=== PATIENT | female | born 1975 | race Caucasian/White ===

== ENCOUNTER 2020-08-23 14:22 | Emergency (ER) | payer BC, SELFPAY ==
[2020-08-23 14:25] VITALS: BP 123/80; PULSE 101; RESP 18; TEMP 36.2; O2SAT 97; BMI 22.6
--- NOTE | 2020-08-23 14:46 | EKG12_ITS ---
Test Reason : CP Blood Pressure : / mmHG Vent. Rate : 089 BPM Atrial Rate : 089 BPM P-R Int : 132 ms QRS Dur : 082 ms QT Int : 356 ms P-R-T Axes : 068 021 019 degrees QTc Int : 433 ms Normal sinus rhythm Nonspecific ST and T wave abnormality Abnormal ECG Confirmed by MANSOOR FRIEND, SOFIE ([id number]), image editor CHANELL LEARY ([id number]) on 08/27/2020 9:32:57 AM Referred By: JOSE Confirmed By:SOFIE MAX MD
--- NOTE | 2020-08-23 14:47 | ED.DCSUM_ITS ---
History of Present Illness Informant: Patient Onset: Days Narrative: 45-year-old female with past medical history of spontaneous pneumothorax, bilateral pleurodesis over 20 years ago, currently Covid positive presents with complaints of chest pain and worsening shortness of breath. Over the last week she has had fevers, chills, loss of taste and smell, dry cough, shortness of breath, and right-sided chest pain. She tested positive for Covid several days ago. She states she has just been lying in bed and has felt short of breath when talking. Today she went down the stairs and had dyspnea on exertion which prompted her to come to the ED. She has pain across her right lower chest and today also developed pain in the left lower chest. Pain is with coughing or deep breathing but is nonexertional. Denies radiation, nausea, vomiting, or diaphoresis. <Allyson Pimentel - Last Filed: 08/23/20 17:46> <Pawan Gaston - Last Filed: 08/23/20 18:11> Chief Complaint: Cough Past Medical History Past Medical History: - - History of pneumothorax, bilateral pleurodesis Smoking Status: Never smoker <Allyson Pimentel - Last Filed: 08/23/20 17:46> <Pawan Gaston - Last Filed: 08/23/20 18:11> - Allergies and Home Meds Allergies/Adverse Reactions: Allergies acetaminophen [From Percocet] Adverse Reaction (Verified 08/23/20 15:07) Itching codeine Adverse Reaction (Verified 08/23/20 15:07) Vomiting oxycodone HCl [From Percocet] Adverse Reaction (Verified 08/23/20 15:07) Itching Primary Care Physician: Sidney Berger MD [NON-STAFF] - Review of Systems General: Reports: Chills, Fever, Malaise Eyes: Denies: Visual changes - bilaterally, Diplopia ENT: Denies: Rhinorrhea, Sore throat Cardiovascular: Reports: Chest pain. Denies: Palpitations Respiratory: Reports: Dyspnea, Cough, Dyspnea on exertion. Denies: Orthopnea, Paroxysmal nocturnal dyspnea Gastrointestinal: Denies: Abdominal pain, Nausea, Vomiting, Diarrhea, Melena, Hematochezia Genitourinary: Denies: Dysuria, Hematuria, Frequency Musculoskeletal: Reports: Myalgias. Denies: Neck pain, Back pain Skin: Denies: Rash, Wounds <Allyson Pimentel - Last Filed: 08/23/20 17:46> Physical Exam Vital Signs/Narrative: Vital Signs Temp Pulse Resp BP Pulse Ox 08/23/20 14:25 97.1 F L 101 H 18 123/80 H 97 General: Well nourished, Well developed, No Acute Distress Head: Normocephalic, Atraumatic Eyes: Perrl, EOMI ENT: Moist mucous membranes, No rhinorrhea Neck: Supple, Nontender Cardiovascular: Regular rate, Regular rhythm, No murmurs Respiratory: No distress, - - Rales/rhonchi in right lower lung base dominguez clear to auscultation. Producible tenderness to palpation over all anterior lower ribs Abdomen: Soft, Nontender, Nondistended, Normal bowel sounds Back: Nontender, Normal Inspection Extremities: Nontender, No edema Skin: Normal color, No rash Neurological: Alert, Oriented x3, Cranial nerves II-XII grossly intact, Normal Strength, Normal Sensation Psychological: Normal affect, Normal Mood <Allyson Pimentel - Last Filed: 08/23/20 17:46> Vital Signs/Narrative: Vital Signs Temp Pulse Resp BP Pulse Ox 08/23/20 16:41 98.3 F 76 20 H 107/71 98 08/23/20 14:25 97.1 F L 101 H 18 123/80 H 97 <Pawan Gaston - Last Filed: 08/23/20 18:11> Diagnostic/Tx/Re-eval Clinical Impression(s) from Imaging Studies Chest X-Ray 08/23/20 15:17 IMPRESSION: Bibasilar infiltrates suggesting pneumonia, including viral causes. Electronically Signed: Nolberto Richardson MD ([place]) at 15:27 EST , Service support , Chest CTA 08/23/20 16:34 IMPRESSION: 1. Bilateral lower lobe segmental pulmonary embolism. No CT evidence of right heart strain. 2. Multilobar groundglass and interlobular opacities typical of COVID associated pneumonia. Electronically Signed: Nolberto Richardson MD (Brooks) at 17:10 EST , Service support , Laboratory Data 08/23/20 08/23/20 08/23/20 15:05 15:05 15:05 WBC 3.8 L RBC 4.42 Hgb 13.8 Hct 40.8 MCV 92.3 MCH 31.2 MCHC 33.8 RDW Std Deviation 40.2 RDW Coeff of Linus 11.8 Plt Count 182 MPV 9.8 Immature Gran % (Auto) 0.500 Neut % (Auto) 86.1 H Lymph % (Auto) 10.7 L [place] % (Auto) 2.4 Eos % (Auto) 0.0 Baso % (Auto) 0.3 Absolute Neuts (auto) 3.3 Absolute Lymphs (auto) 0.41 L Nucleated RBC % 0 Differential Comment SCANNED D-Dimer Quant (PE/DVT) 1.87 H* Sodium 137 Potassium 3.6 Chloride 108 H Carbon Dioxide 21.0 Anion Gap 8 BUN 12 Creatinine 1.06 H Estim Creat Clear Calc 62.74 Est GFR (MDRD) Af Amer 72 Est GFR (MDRD) Non-Af 60 BUN/Creatinine Ratio 11.3 Glucose 138 H Calcium 8.8 - Rhythm Strip Rhythm Strip: Sinus Rhythm Rate: 89 Ectopy: None - Medical Decision Making 45-year-old female who is Covid positive presents with cough, chest pain and shortness of breath. She appears well nontoxic. Vital signs show tachycardia 101, otherwise normal. 97% on room air. Labs show mild leukopenia. D-dimer elevated. CTA shows bilateral lower lobe PEs and multilobar groundglass opacities typical of COVID pneumonia. Ambulatory pulse ox is 97% with HR of 110. She states she feels fine with exertion. She is comfortable with going home on anticoagulation. She was given Lovenox here and a prescription for Eliquis and Decadron x5 days. Follow-up with PCP in 1 to 2 weeks. She was agreeable with this plan and discharged home in stable condition. <Allyson Pimentel - Last Filed: 08/23/20 17:46> - Medical Decision Making Patient has known Covid positive. She does have a history of prior pneumothorax. She has significant pleuritic pain. Metabolic work-up was pursued and is relatively unremarkable. Patient was given Decadron. However, her D-dimer was elevated and she underwent CTA. This does show small segmental PEs in the lower lobes. The patient was ambulated without hypoxia. She is feeling improved. She was covered with Lovenox. The patient wants to attempt outpatient therapy. I do feel that this is reasonable given her lack of significant comorbidities and small PEs. She was counseled on concerning symptoms and reasons to return. She will be discharged. <Pawan Gaston - Last Filed: 08/23/20 18:11> ED Disposition <Allyson Pimentel - Last Filed: 08/23/20 17:46> <Pawan Gaston - Last Filed: 08/23/20 18:11> - Plan for ED Patient: Disposition: Home or Assisted Living Diagnosis: Bilateral pulmonary embolism, Pneumonia due to COVID-19 virus Instructions: Pulmonary Embolism Prescriptions: Dexamethasone [Decadron] 6 mg PO DAILY 5 Days #5 tab Transmission Status: Received by [id number] Apixaban [Eliquis] 5 mg PO BID #60 tab Transmission Status: Received by [id number] Referrals: Sidney Berger MD [NON-STAFF] -
--- NOTE | 2020-08-23 15:17 | RAD_ITS ---
STUDY: X-RAY CHEST REASON FOR EXAM: Female, 45 years old. covid positive, pnuemonia, increased SOB TECHNIQUE: AP COMPARISON: None. FINDINGS: EKG leads project over the chest. There are patchy groundglass and interstitial opacities in the left more than right lung base. There is pleural fibrotic thickening of the pulmonary lung apices. Normal size heart. Normal mediastinum and narendra. Normal visualized pulmonary arteries. Normal visualized aortic arch and descending thoracic aorta. Normal visualized thoracic spine. Normal visualized ribs, clavicles, and shoulders. There is no demonstrated abnormality of the visualized soft tissue structures of the upper abdomen. RAD/Chest 1 View (Portable) IMPRESSION: Bibasilar infiltrates suggesting pneumonia, including viral causes. Electronically Signed: Nolberto Richardson MD (Bro[place]) at 15:27 EST , Service support ,
[2020-08-23 15:37] LABS: Anion Gap 8 (5-15); BUN 12 mg/dL (7-18); BUN/Creat Ratio 11.3 RATIO (10-20); Calcium,Total 8.8 mg/dL (8.5-10.1); Chloride 108 mmol/L (98-107); Creatinine, Serum 1.06 mg/dL (0.55-1.02); EST Glomerular Filtration Rate 60 mL/min (>60); Est Glom Filt Rate - Afr Amer 72 mL/min (>60); Estimated Creatinine Clearance 62.74 ml/min; Glucose 138 mg/dL (74-106); Potassium 3.6 mmol/L (3.5-5.1); Sodium Level 137 mmol/L (136-145)
[2020-08-23 15:46] LABS: Absolute Lymphocyte Count 0.41 X10^3/uL (0.83-4.51); Absolute Neutrophil Count 3.3 X10^3/uL (2.0-7.7); Basophil# 0.01 X10^3/uL; Basophil% 0.3 % (0-1); Hematocrit 40.8 % (37-47); Hemoglobin 13.8 g/dL (12.0-15.0); Lymphocyte # 0.41 X10^3/ul (4.0); Lymphocyte % 10.7 % (19-41); Mean Corp Hgb Conc 33.8 g/dL (32-36); Mean Corpuscular Hgb 31.2 pg (27.0-32.0); Mean Corpuscular Volume 92.3 fL (81-99); Mean Platelet Vol. 9.8 fl (6.2-12.0); Monocyte# 0.09 X10^3/uL; Monocyte% 2.4 % (0-10); NRBC Flagged by Analyzer 0 % (0-5); Neutrophil # 3.29 X10^3/uL (2.7-7.7); Neutrophil % 86.1 % (47-70); POSITIVE DIFFERENTIAL YES; Platelet Count 182 K/mm3 (150-450); RBC Distribution Width CV 11.8 % (11.6-14.6); RBC Distribution Width SD 40.2 fl (35.1-43.9); Red Blood Count 4.42 M/mm3 (4.2-5.4); White Blood Count 3.8 K/mm3 (4.4-11.0)
[2020-08-23 16:03] LABS: Differential Indicated SCAN CRITERIA MET
[2020-08-23] MEDS: dexAMETHasone 10 MG/ML Vial 6 MG IV (16:13)
[2020-08-23 16:34] LABS: D-Dimer Quantitative (DVT/PE) 1.87 FEU/ug/m (0.27-0.49)
--- NOTE | 2020-08-23 16:34 | CT_ITS ---
STUDY: CTA CHEST REASON FOR EXAM: Female, 45 years old. COVID, SOB, COUGH, ELEV. D-DIMER, BILAT CP, H/O SPONTANEOUS PNEUMO BILAT RADIATION DOSAGE (If Supplied By Facility): CTDIvol = ( 5.655 ) mGy, DLP = ( 178.85 ) mGycm TECHNIQUE: The examination was performed with the intravenous administration of IV 100mL Isovue-370. Post-processing of the angiographic images was performed, with multiplanar reformation and 3D reconstruction. Individualized dose optimization techniques were used for this CT. COMPARISON: None. FINDINGS: Bilateral breast implants. Normal enhancement of the main pulmonary artery and right and left pulmonary arteries. There are filling defects involving the bilateral lower lobe segmental branches (image 196 series 602 on the left; image 106 series 602 on the right). No evidence of right heart strain. Normal thoracic aorta and visualized great vessels. There is no demonstrated aortic dissection. Normal heart and pericardium. Normal mediastinum. Normal hilar regions. There are multilobar peripheral rounded groundglass opacities with intralobular septal thickening predominantly in the bilateral lower lobes. Normal chest wall structures. Normal osseous structures. Normal visualized upper abdomen. CT/CTA Chest W/WO Contrast IMPRESSION: 1. Bilateral lower lobe segmental pulmonary embolism. No CT evidence of right heart strain. 2. Multilobar groundglass and interlobular opacities typical of COVID associated pneumonia. Electronically Signed: Nolberto Richardson MD (Brooks) at 17:10 EST , Service support ,
[2020-08-23 16:41] VITALS: BP 107/71; PULSE 76; RESP 20; TEMP 36.8; O2SAT 98
[2020-08-23 16:45] LABS: Differential Comment SCANNED
[2020-08-23] MEDS: Enoxaparin 60 MG/0.6 ML Syringe SC (17:41)
[2020-08-23 17:52] VITALS: O2SAT 98
[2020-08-23 18:12] VITALS: BP 112/75; PULSE 85; RESP 22; TEMP 36.9; O2SAT 96
== END 2020-08-23 18:13 | disposition home or self-care (01) ==
PROVIDERS: Emergency Provider Physician Assistant; PCP Family Medicine
DX: I26.99 Other pulmonary embolism without acute cor pulmonale (principal); U07.1 COVID-19; J12.89 Other viral pneumonia
CPT/HCPCS: 71045; 71275; 80048; 85025; 85379; 93005; 96372; 96374; 99284; J7030; Q9967; A4216

== ENCOUNTER 2020-11-21 09:22 | Day surgery (SDC) | payer BC, SELFPAY ==
--- NOTE | 2020-11-14 13:52 | HP.PCM_ITS ---
History and Physical Date of Admission: 11/21/20 HPI: The patient is a 45 year old female presenting for pre-operative visit. She is scheduled for?hysteroscopy with endometrial ablation, for?menorrhagia. ??Procedure discussed along with risks, benefits and complications. ?Other alternatives discussed for management. Consent form signed??Yes.? PAST MEDICAL HISTORY PAST MEDICAL HISTORY Diagnosis Date ? Bilateral pulmonary embolism (HCC) ? ? d/t covid pneumonia ? Kidney stones ? ? Migraine, menstrual ? ? Spontaneous pneumothorax ? ? ? PAST SURGICAL HISTORY PAST SURGICAL HISTORY Procedure Laterality Date ? BREAST AUGMENTATION W/PROSTHETIC IMPLANT Bilateral ? ? under the muscle ? PAST SURGICAL HISTORY OF Bilateral ? ? bilateral lungs d/t pneumothorax ? PAST SURGICAL HISTORY OF Bilateral ? ? d/t renal calculi ? PAST SURGICAL HISTORY OF Right ? ? right foot fx ? ? CURRENT MEDICATIONS Current Outpatient Medications Medication Sig Dispense Refill ? ELIQUIS 5 mg tab(s) ? ProAir RespiClick 90 mcg/actuation breath activated Inhale 2 Puffs as instructed every 4 hours as needed. ? ? ? OXYGEN, HOME THERAPY, by Nasal Cannula route as directed. ? ? ? traZODone (DESYREL) 50 mg tablet Take 1 tablet by mouth daily at bedtime. 90 tablet 3 ? FLUoxetine HCl (PROZAC) 40 mg capsule Take 40 mg by mouth once daily. ? ? ? topiramate (TOPAMAX) 50 mg tablet Take 50 mg by mouth once daily. ? ? ? Multivitamin capsule Take 1 capsule by mouth once daily. ? ? ? ascorbic acid (VITAMIN C ORAL) Take by mouth. ? ? ? cyanocobalamin, vitamin B-12, (VITAMIN B12 ORAL) Take by mouth. ? ? ? docosahexanoic acid/epa (FISH OIL ORAL) Take by mouth. ? ? ? Lactobac no.41/Bifidobact no.7 (PROBIOTIC-10 ORAL) Take by mouth. ? ? ? doxylamine succinate (SLEEP AID ORAL) Take by mouth. ? ? ? montelukast (SINGULAIR) 10 mg tablet ? No current facility-administered medications for this visit. ? ALLERGIES:?Amoxicillin-Pot Clavulanate, Codeine, and Percocet [Oxycodone- Acetaminophen] ? PERSONAL HISTORY:? SOCIAL HISTORY Social History ? Tobacco Use ? Smoking status: Never Smoker ? Smokeless tobacco: Never Used Substance Use Topics ? Alcohol use: Yes ? ? Comment: social ? Drug use: Never ? FAMILY HISTORY:? FAMILY HISTORY FAMILY HISTORY Problem Relation Age of Onset ? Depression Mother ? ? Prostate Cancer Father ?met to bones ? Hypertension Father ? ? Depression Sister ? ? Stroke Maternal Grandfather ? ? REVIEW OF SYMPTOMS: GENERAL: denies fevers or chills ENDOCRINOLOGY: has not been on steroids Cardiology : denies palpitations or chest pain Respiratory: denies?new?SOB or cough Hematology: denies history of prolonged bleeding or easy bruising?before she was on anticoagulants Allergy: Denies history of personal or family history of allergy to anesthesia ? ? PHYSICAL EXAMINATION: ? VITALS:?Blood pressure 118/72, weight 152 lb (68.9 kg), last menstrual period 09/29/2020. ? GENERAL:??The patient is well nourished, well hydrated in no acute distress. ?, The patient is oriented to time, place, and person. NECK:?Supple. No lynphadenopathy, normal thyroid, no thyromegaly. LUNGS:?Clear to auscultation bilaterally. no wheezes, rhonchi or rales HEART:?Regular rate and rhythm, Normal heart sounds and No murmurs or gallops GENITALIA:?Normal external genitalia, Urethral meatus normal, Bladder nontender, normal vagina and normal vaginal tone, normal cervix, normal uterus, size and consistency, normal adnexa without masses or tenderness and perineum WNL ? ? IMPRESSION:?menorrhagia, not a hormonal therapy candidate due to h/o pulmonary embolism ? PLAN:???The risks/benefits/alternatives and personal involved for the planne d?hysteroscopy with endometrial ablation?were reviewed with the patient. Her questions were answered to her satisfaction and she desires to proceed. ?Consent was signed. ?I reviewed with her postop instructions and expectations. ? ? I have reviewed and updated past medical and surgical history, medications and allergies? This H&P was completed in my office on 11/11/2020
[2020-11-21] VITALS (7 sets, daily range): BP systolic 86–114; BP diastolic 51–73; PULSE 69–77; RESP 16; TEMP 36.1–36.5; O2SAT 97–100; BMI 24.2
[2020-11-21 09:54] LABS: Internal QC Validated? YES +Cl - CLEAR BKGD
[2020-11-21 09:55] LABS: Pregnancy, Urine Negative Negative
[2020-11-21 10:13] LABS: Hematocrit 37.7 % (37-47); Hemoglobin 12.6 g/dL (12.0-15.0); Mean Corp Hgb Conc 33.4 g/dL (32-36); Mean Corpuscular Hgb 32.1 pg (27.0-32.0); Mean Corpuscular Volume 95.9 fL (81-99); Mean Platelet Vol. 9.7 fl (6.2-12.0); Platelet Count 217 K/mm3 (150-450); RBC Distribution Width CV 12.8 % (11.6-14.6); Red Blood Count 3.93 M/mm3 (4.2-5.4); White Blood Count 5.4 K/mm3 (4.4-11.0)
[2020-11-21] MEDS: Lactated Ringers 1,000 ML 100 ML IV (10:21)
[2020-11-21] MEDS: Lubricating Jelly 60 GM Tube 30 GM TOPICAL (11:42)
[2020-11-21] MEDS: Lidocaine 1% /Epi 1:100 (20ml) 20 ML Vial (11:44)
--- NOTE | 2020-11-21 11:49 | DCINST_ITS ---
Discharge Diet: No Restrictions Discharge Activity: Return to Normal Activity, May Shower, May Take a Tub Bath - in 2 weeks. Return to work on:: 11/24/20 May resume sexual activity in: 2 weeks Call your doctor if your incision/area has: Sudden Increased Bleeding Call your doctor if you observe: Fever of 101 or Higher Allergies/Adverse Reactions: Allergies acetaminophen [From Percocet] Adverse Reaction (Verified 11/17/20 08:56) Itching codeine Adverse Reaction (Verified 11/17/20 08:56) Vomiting oxycodone HCl [From Percocet] Adverse Reaction (Verified 11/17/20 08:56) Itching Medications to take at Discharge Hydrocodone Bitart/Apap 5-325 [[place] 5/325] 1 - 2 tablet PO Q4H PRN PRN #20 tablet 03/06/14 Albuterol Sulfate [Proair Respiclick] 2 puff INHALATION Q4H PRN PRN 08/23/20 Apixaban [Eliquis] 5 mg PO BID #60 tab 08/23/20 Fluoxetine HCl [Prozac] 40 mg PO QHS 08/23/20 Norethindrone-Ethinyl Estrad [Nortrel 0.5-35-28 Tablet] 1 tab PO DAILY 08/23/20 Sumatriptan Succinate [Imitrex] 50 mg PO DAILY PRN 08/23/20 Topiramate [Topamax] 50 mg PO QHS 08/23/20 Montelukast [Singulair] 10 mg PO DAILY 11/17/20 traZODone [Desyrel] 50 mg PO QHS 11/17/20 Primary Care Physician: Santo Johnson MD [Primary Care Provider] - Test Results: Test results from this visit will be discussed in further detail at your follow- up appointment, if applicable. Please Follow Up With: Jazmine Amaral MD - [phone] When: 4-6 weeks virtual or in office if needed
--- NOTE | 2020-11-21 11:50 | PCM.OPRPT ---
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 The weighted speculum was placed in the vagina and the anterior lip of the cervix was grasped with a single-tooth tenaculum. A paracervical block was administered with [1% lidocaine with 1-100,000 epinephrine solution]. The cervix was dilated serially with Hegar dilators. The [5mm] hysteroscope was placed into the uterine cavity and the above findings were noted. Bilateral tubal ostia [were] identified. The uterus sounded to [9]cm and the cervical length was [4]cm. The endometrial cavity length was [5]cm. The hysteroscope was removed. The Olga device was set to [5]cm. The instrument was then seated into the endometrial cavity and the indicator was in the green. The cervical seal balloon was inflated and the uterine integrity test was passed. The ablation procedure was initiated and completed without interruption. During the ablation procedure gentle traction was held on the tenaculum and the Olga device was held up against the uterine fundus. When the ablation procedure was completed the Olga was removed. The tenaculum was removed and the tenaculum site was noted to be hemostatic. All sponge and needle counts were correct. A vaginal sweep was performed by me. The patient was awakened and taken to the recovery room in stable condition. Hysteroscopic ins: 300cc normal saline Hysteroscopic outs:200cc Findings: Endometrial cavity: [normal, no fibroids or polyps noted] Cervix: [normal] Vagina: [normal] Start time: 1134 Stop time: 1147 Grafts/Implants Used: none - Complications none - Admit VTE Documentation VTE Present on Admission: No VTE Mechan Device Prophylaxis: SCD's
[2020-11-21] MEDS: HYDROcodone Bitartrate/Apap 5/325 Tablet PO (13:24)
== END 2020-11-21 13:53 | disposition home or self-care (01) ==
LOC: SDC 09:24 → AC 09:24
PROVIDERS: Anesthesiology; PCP Family Medicine; Referring Provider Obstetrics & Gynecology; Visit Provider Obstetrics & Gynecology
PROC: 0U5B8ZZ Destruction of Endometrium, Via Natural or Artificial Opening Endoscopic (ICD-10-PCS; CPT 58558; principal; 2020-11-21 10:45)
DX: N92.0 Excessive and frequent menstruation with regular cycle (principal); F41.9 Anxiety disorder, unspecified; F32.9 Major depressive disorder, single episode, unspecified; G43.909 Migraine, unspecified, not intractable, without status migrainosus; Z86.711 Personal history of pulmonary embolism; Z86.16 Personal history of COVID-19; Z87.01 Personal history of pneumonia (recurrent); Z87.442 Personal history of urinary calculi; Z79.01 Long term (current) use of anticoagulants; Z79.899 Other long term (current) drug therapy
CPT/HCPCS: 58563; 81025; 85027; 87426; C9803; J7120; J2405